=== PATIENT | female | born 1940 | race Two or more races ===

== ENCOUNTER → 2021-10-13 | Emergency (ER) | payer OTHER | END | disposition left against medical advice (07) | LOC: ER 07:29 | DX: M79.10 Myalgia, unspecified site (principal); Z53.21 Procedure and treatment not carried out due to patient leaving prior to being seen by health care provider; W54.0XXA Bitten by dog, initial encounter; Y93.89 Activity, other specified; Y92.89 Other specified places as the place of occurrence of the external cause; Y99.8 Other external cause status ==